=== PATIENT | female | born 1950 | race Caucasian/White ===

== ENCOUNTER 2022-05-08 20:07 | Emergency (ER) | payer MEDICARE ==
[~2022-05-08 20:07] MED LIST: Iopamidol 370 76% 100 ML VIAL ONE
[2022-05-08 21:05] LABS: #Basophils 0.1 thou/uL (0.0-0.2); #Lymphocytes 1.1 thou/uL (1.20-3.40); #Monocytes 0.6 thou/uL (0.11-0.59); #Neutrophils 11.4 thou/uL (1.40-6.50); %Basophils 0.8 % (0.0-1.0); %Eosinophils 0.2 % (0.0-10.0); %Lymphocytes 8.2 % (21.0-51.0); %Monocytes 4.5 % (0.0-10.0); %Neutrophils 86.3 % (42.0-75.0); Hemoglobin 14.7 g/dL (12.0-16.0); Mean Corpuscular HGB CONC 31.9 g/dL (32.0-36.0); Mean Corpuscular Hemoglobin 30.1 pg (27.0-31.0); Mean Corpuscular Volume 94.1 fL (78.0-98.0); Mean Platelet Volume 9.2 fL (7.4-10.4); Platelet Count 227 thou/uL (130-400); RBC Distribution Width 11.7 % (11.5-14.5); White Blood Cell (WBC) Count 13.3 thou/uL (4.8-10.8)
[2022-05-08] MEDS ORDERED: Pantoprazole 40 MG VIAL ONE (21:05)
[2022-05-08] MEDS ORDERED: Ondansetron PF 4 MG/2 ML Vial ONE ×2 (21:05→23:46)
[2022-05-08] MEDS ORDERED: Sodium Chloride 0.9% 1,000 ML ONE (21:05)
[2022-05-08] MEDS ORDERED: Ondansetron ODT 4 MG TAB ONE (21:05)
[2022-05-08 21:10] LABS: Prothrombin Time 13.2 sec (12.0-14.7)
[2022-05-08 21:19] LABS: ALT (SGPT) 15 U/L (8-55); AST (SGOT) 18 U/L (5-34); Albumin 4.4 g/dL (3.4-4.8); Alkaline Phosphatase 92 U/L (40-110); Anion Gap 19 mmol/L (10-20); BUN (Urea Nitrogen) 11 mg/dL (9.8-20.1); Bilirubin, Total 0.6 mg/dL (0.2-1.2); Calc. Creatinine Clearance 0 mL/min (70-130); Calcium 10.1 mg/dL (7.8-10.44); Carbon Dioxide 22 mmol/L (23-31); Chloride 104 mmol/L (98-107); Estimated GFR 65; Globulin 3.1 g/dL (2.4-3.5); Glucose 288 mg/dL (83-110); Potassium 4.2 mmol/L (3.5-5.1); Protein, Total 7.5 g/dL (5.8-8.1); Sodium 141 mmol/L (136-145)
[2022-05-08 23:23] LABS: Bilirubin Negative (Negative); Blood, Urine Negative (Negative); Clarity Slightly Cloudy (Clear); Glucose, Urine (Dipstick) >=1000 mg/dL (Negative); Ketone, Urine 15 mg/dL (Negative); Leukocyte Moderate (Negative); Nitrite Negative (Negative); Protein, Urine (Dipstick) Negative (Neg-Trace); Urobilinogen 0.2 mg/dL (Less than 2)
[2022-05-08 23:24] LABS: RBC/HPF 0-3 HPF (0-3); Squamous Epithelial 21-50 HPF (0-3); WBC/HPF 21-50 HPF (0-3)
[2022-05-09] MEDS ORDERED: Sodium Chloride 0.9% 50 ML ONE (01:48)
[2022-05-09] MEDS ORDERED: Promethazine HCl 25 MG/ML VIAL ONE (01:48)
== END 2022-05-09 02:14 | disposition short-term general hospital (02) ==
LOC: MADERS 20:07
DX: K92.0 Hematemesis (principal); Z79.84 Long term (current) use of oral hypoglycemic drugs
CPT/HCPCS: 74177; 80053; 81003; 81015; 85025; 85610; 85730; 86900; 86901; 87086; 96361; 96365; 96375; 96376; C9113; J2405; J2550; J7050; Q0162; Q9967

== ENCOUNTER 2022-09-30 13:02 | Inpatient (IN) | payer MEDICARE ==
[2022-09-30 15:16] VITALS: BMI 25.6
[2022-09-30] MEDS ORDERED: HumaLOG 300 UNITS/3 ML VIAL SC PRN ×2 (17:43)
[2022-09-30] MEDS ORDERED: Dextrose 50% Abboject 50 ML SYRINGE SLOW IVP PRN (17:43)
[2022-09-30] MEDS ORDERED: Lantiseptic Ointment 130 GM JAR TOP PRN (18:36)
[2022-09-30] MEDS: Ezetimibe 10 MG TAB PO SCH (21:24)
[2022-09-30] MEDS: Lantiseptic Ointment 130 GM JAR TOP SCH (21:24)
[2022-09-30] MEDS: Nystatin Cream 15 GM TUBE TOP SCH (21:25)
[2022-09-30] MEDS: Rosuvastatin 10 MG TAB PO SCH (21:25)
[2022-10-01 07:20] LABS: Hemoglobin 15.3 g/dL (12.0-16.0); Mean Corpuscular HGB CONC 33.6 g/dL (32.0-36.0); Mean Corpuscular Hemoglobin 30.4 pg (27.0-31.0); Mean Corpuscular Volume 90.6 fl (78.0-98.0); Mean Platelet Volume 8.1 fL (7.4-10.4); Platelet Count 236 10x3/uL (130-400); RBC Distribution Width 11.5 % (11.5-14.5); Red Blood Cell (RBC) Count 5.03 mill/uL (4.20-5.40); White Blood Cell (WBC) Count 6.2 10x3/uL (4.8-10.8)
[2022-10-01] MEDS ORDERED: glipiZIDE 5 MG TAB PO SCH (07:30)
[2022-10-01 07:45] LABS: Anion Gap 15 mmol/L (10-20); BUN (Urea Nitrogen) 13 mg/dL (9.8-20.1); Calc. Creatinine Clearance 58 mL/min (70-130); Calcium 9.7 mg/dL (7.8-10.44); Carbon Dioxide 24 mmol/L (23-31); Chloride 106 mmol/L (98-107); Estimated GFR 69; Glucose 136 mg/dL (83-110); Potassium 3.7 mmol/L (3.5-5.1); Sodium 141 mmol/L (136-145)
[2022-10-01] MEDS: Fenofibrate Nanocrystallized 145 MG TAB PO SCH (09:01)
[2022-10-01] MEDS: Pioglitazone HCl 15 MG TAB PO SCH (09:01)
[2022-10-01] MEDS: Nystatin Cream 15 GM TUBE TOP SCH ×2 (09:02→21:06)
[2022-10-01] MEDS: Aspirin 81 mg Enteric Coated Tablet PO SCH (09:02)
[2022-10-01] MEDS: metFORMIN 500 MG TAB PO SCH ×2 (09:02→17:10)
[2022-10-01] MEDS: Ergocalciferol 1.25 MG(50,000 UNITS) CAP PO SCH (09:02)
[2022-10-01] MEDS: Lantiseptic Ointment 130 GM JAR TOP SCH ×2 (09:03→21:04)
[2022-10-01] MEDS: Rosuvastatin 10 MG TAB PO SCH (21:02)
[2022-10-01] MEDS: Ezetimibe 10 MG TAB PO SCH (21:02)
[2022-10-02] MEDS: Nystatin Cream 15 GM TUBE TOP SCH ×2 (09:15→21:49)
[2022-10-02] MEDS: Lantiseptic Ointment 130 GM JAR TOP SCH ×3 (09:15→21:50)
[2022-10-02] MEDS: Aspirin 81 mg Enteric Coated Tablet PO SCH (09:45)
[2022-10-02] MEDS: metFORMIN 500 MG TAB PO SCH ×2 (09:45→17:41)
[2022-10-02] MEDS: Pioglitazone HCl 15 MG TAB PO SCH (09:45)
[2022-10-02] MEDS: Fenofibrate Nanocrystallized 145 MG TAB PO SCH (09:45)
[2022-10-02] MEDS ORDERED: Senokot S 8.6-50 MG TAB PO PRN (16:53)
[2022-10-02] MEDS: Ezetimibe 10 MG TAB PO SCH (21:42)
[2022-10-02] MEDS: Rosuvastatin 10 MG TAB PO SCH (21:47)
[2022-10-03] MEDS: Aspirin 81 mg Enteric Coated Tablet PO SCH (10:05)
[2022-10-03] MEDS: Fenofibrate Nanocrystallized 145 MG TAB PO SCH (10:05)
[2022-10-03] MEDS: metFORMIN 500 MG TAB PO SCH ×2 (10:05→17:08)
[2022-10-03] MEDS: Polyethylene Glycol 3350 17 GM Packet PO SCH (10:06)
[2022-10-03] MEDS: Nystatin Cream 15 GM TUBE TOP SCH ×4 (10:06→20:51)
[2022-10-03] MEDS: Lantiseptic Ointment 130 GM JAR TOP SCH ×2 (10:06→20:55)
[2022-10-03] MEDS: Rosuvastatin 10 MG TAB PO SCH (20:50)
[2022-10-03] MEDS: Ezetimibe 10 MG TAB PO SCH (20:50)
[2022-10-04] MEDS: metFORMIN 500 MG TAB PO SCH ×2 (09:31→17:04)
[2022-10-04] MEDS: Aspirin 81 mg Enteric Coated Tablet PO SCH (09:31)
[2022-10-04] MEDS: Fenofibrate Nanocrystallized 145 MG TAB PO SCH (09:31)
[2022-10-04] MEDS: Lantiseptic Ointment 130 GM JAR TOP SCH ×2 (09:32→20:35)
[2022-10-04] MEDS: Nystatin Cream 15 GM TUBE TOP SCH ×2 (09:32→20:36)
[2022-10-04] MEDS: Polyethylene Glycol 3350 17 GM Packet PO SCH (09:32)
[2022-10-04] MEDS: Rosuvastatin 10 MG TAB PO SCH (20:33)
[2022-10-04] MEDS: Ezetimibe 10 MG TAB PO SCH (20:33)
[2022-10-05] MEDS: metFORMIN 500 MG TAB PO SCH ×2 (08:43→17:16)
[2022-10-05] MEDS: Fenofibrate Nanocrystallized 145 MG TAB PO SCH (08:43)
[2022-10-05] MEDS: Polyethylene Glycol 3350 17 GM Packet PO SCH (08:44)
[2022-10-05] MEDS: Nystatin Cream 15 GM TUBE TOP SCH ×2 (08:44→21:56)
[2022-10-05] MEDS: Aspirin 81 mg Enteric Coated Tablet PO SCH (08:44)
[2022-10-05] MEDS: Lantiseptic Ointment 130 GM JAR TOP SCH ×2 (08:45→21:56)
[2022-10-05] MEDS: Rosuvastatin 10 MG TAB PO SCH (21:55)
[2022-10-05] MEDS: Ezetimibe 10 MG TAB PO SCH (21:55)
[2022-10-06] MEDS: Polyethylene Glycol 3350 17 GM Packet PO SCH (08:31)
[2022-10-06] MEDS: metFORMIN 500 MG TAB PO SCH ×2 (08:31→18:16)
[2022-10-06] MEDS: Lantiseptic Ointment 130 GM JAR TOP SCH ×2 (08:32→21:55)
[2022-10-06] MEDS: Fenofibrate Nanocrystallized 145 MG TAB PO SCH (08:32)
[2022-10-06] MEDS: Aspirin 81 mg Enteric Coated Tablet PO SCH (08:32)
[2022-10-06] MEDS: Nystatin Cream 15 GM TUBE TOP SCH ×2 (08:33→21:55)
[2022-10-06] MEDS: Ezetimibe 10 MG TAB PO SCH (21:54)
[2022-10-06] MEDS: Rosuvastatin 10 MG TAB PO SCH (21:54)
[2022-10-07] MEDS: metFORMIN 500 MG TAB PO SCH ×2 (09:25→18:07)
[2022-10-07] MEDS: Aspirin 81 mg Enteric Coated Tablet PO SCH (09:25)
[2022-10-07] MEDS: Polyethylene Glycol 3350 17 GM Packet PO SCH (09:25)
[2022-10-07] MEDS: Fenofibrate Nanocrystallized 145 MG TAB PO SCH (09:25)
[2022-10-07] MEDS: Lantiseptic Ointment 130 GM JAR TOP SCH ×2 (09:26→21:42)
[2022-10-07] MEDS: Nystatin Cream 15 GM TUBE TOP SCH ×2 (09:26→21:42)
[2022-10-07] MEDS: Ezetimibe 10 MG TAB PO SCH (21:42)
[2022-10-07] MEDS: Rosuvastatin 10 MG TAB PO SCH (21:42)
[2022-10-08] MEDS: metFORMIN 500 MG TAB PO SCH ×2 (09:06→17:15)
[2022-10-08] MEDS: Polyethylene Glycol 3350 17 GM Packet PO SCH (09:07)
[2022-10-08] MEDS: Lantiseptic Ointment 130 GM JAR TOP SCH ×2 (09:07→20:27)
[2022-10-08] MEDS: Ergocalciferol 1.25 MG(50,000 UNITS) CAP PO SCH (09:07)
[2022-10-08] MEDS: Fenofibrate Nanocrystallized 145 MG TAB PO SCH (09:07)
[2022-10-08] MEDS: Aspirin 81 mg Enteric Coated Tablet PO SCH (09:07)
[2022-10-08] MEDS: Nystatin Cream 15 GM TUBE TOP SCH ×2 (09:08→20:28)
[2022-10-08] MEDS: Ezetimibe 10 MG TAB PO SCH (20:26)
[2022-10-08] MEDS: Rosuvastatin 10 MG TAB PO SCH (20:26)
[2022-10-08] MEDS: Mirtazapine 15 MG TAB PO SCH (20:26)
[2022-10-09] MEDS: metFORMIN 500 MG TAB PO SCH ×2 (08:26→17:23)
[2022-10-09] MEDS: Polyethylene Glycol 3350 17 GM Packet PO SCH (08:26)
[2022-10-09] MEDS: Fenofibrate Nanocrystallized 145 MG TAB PO SCH (08:27)
[2022-10-09] MEDS: Aspirin 81 mg Enteric Coated Tablet PO SCH ×2 (08:27→08:34)
[2022-10-09] MEDS: Aspirin Chewable 81 MG TAB PO SCH (12:37)
[2022-10-09] MEDS: Nystatin Cream 15 GM TUBE TOP SCH ×2 (12:39→20:36)
[2022-10-09] MEDS: Lantiseptic Ointment 130 GM JAR TOP SCH ×3 (12:39→20:37)
[2022-10-09] MEDS: Ezetimibe 10 MG TAB PO SCH (20:35)
[2022-10-09] MEDS: Rosuvastatin 10 MG TAB PO SCH (20:35)
[2022-10-09] MEDS: Mirtazapine 15 MG TAB PO SCH (20:36)
[2022-10-09] MEDS: Famotidine 20 MG TAB PO SCH (20:36)
[2022-10-10 05:06] LABS: Platelet Count 242 10x3/uL (130-400)
[2022-10-10] MEDS: Lantiseptic Ointment 130 GM JAR TOP SCH ×2 (09:00→21:22)
[2022-10-10] MEDS: metFORMIN 500 MG TAB PO SCH ×2 (09:03→18:04)
[2022-10-10] MEDS: Fenofibrate Nanocrystallized 145 MG TAB PO SCH (10:01)
[2022-10-10] MEDS: Aspirin Chewable 81 MG TAB PO SCH (10:01)
[2022-10-10] MEDS: Famotidine 20 MG TAB PO SCH ×2 (10:01→21:18)
[2022-10-10] MEDS: Nystatin Cream 15 GM TUBE TOP SCH ×2 (10:11→21:22)
[2022-10-10] MEDS: Polyethylene Glycol 3350 17 GM Packet PO SCH (10:19)
[2022-10-10] MEDS: Ezetimibe 10 MG TAB PO SCH (21:18)
[2022-10-10] MEDS: Rosuvastatin 10 MG TAB PO SCH (21:19)
[2022-10-10] MEDS: Mirtazapine 15 MG TAB PO SCH (21:19)
[2022-10-11] MEDS: metFORMIN 500 MG TAB PO SCH ×2 (09:44→17:08)
[2022-10-11] MEDS: Famotidine 20 MG TAB PO SCH ×2 (09:45→20:24)
[2022-10-11] MEDS: Polyethylene Glycol 3350 17 GM Packet PO SCH (09:45)
[2022-10-11] MEDS: Nystatin Cream 15 GM TUBE TOP SCH ×2 (09:45→20:25)
[2022-10-11] MEDS: Lantiseptic Ointment 130 GM JAR TOP SCH ×2 (09:45→20:24)
[2022-10-11] MEDS: Fenofibrate Nanocrystallized 145 MG TAB PO SCH (09:45)
[2022-10-11] MEDS: Aspirin Chewable 81 MG TAB PO SCH (09:45)
[2022-10-11] MEDS: Ezetimibe 10 MG TAB PO SCH (20:23)
[2022-10-11] MEDS: Rosuvastatin 10 MG TAB PO SCH (20:24)
[2022-10-11] MEDS: Mirtazapine 15 MG TAB PO SCH (20:25)
[2022-10-12] MEDS: metFORMIN 500 MG TAB PO SCH ×2 (08:13→16:47)
[2022-10-12] MEDS: Aspirin Chewable 81 MG TAB PO SCH (08:13)
[2022-10-12] MEDS: Fenofibrate Nanocrystallized 145 MG TAB PO SCH (08:13)
[2022-10-12] MEDS: Famotidine 20 MG TAB PO SCH ×2 (08:14→22:07)
[2022-10-12] MEDS: Lantiseptic Ointment 130 GM JAR TOP SCH ×2 (08:15→22:06)
[2022-10-12] MEDS: Polyethylene Glycol 3350 17 GM Packet PO SCH (08:15)
[2022-10-12] MEDS: Nystatin Cream 15 GM TUBE TOP SCH ×2 (08:15→22:06)
[2022-10-12] MEDS: Mirtazapine 15 MG TAB PO SCH (22:07)
[2022-10-12] MEDS: Rosuvastatin 10 MG TAB PO SCH (22:07)
[2022-10-12] MEDS: Ezetimibe 10 MG TAB PO SCH (22:07)
[2022-10-13] MEDS: metFORMIN 500 MG TAB PO SCH ×2 (09:17→17:22)
[2022-10-13] MEDS: Famotidine 20 MG TAB PO SCH ×2 (09:17→21:27)
[2022-10-13] MEDS: Polyethylene Glycol 3350 17 GM Packet PO SCH (09:17)
[2022-10-13] MEDS: Fenofibrate Nanocrystallized 145 MG TAB PO SCH (09:17)
[2022-10-13] MEDS: Aspirin Chewable 81 MG TAB PO SCH (09:17)
[2022-10-13] MEDS: Nystatin Cream 15 GM TUBE TOP SCH ×2 (09:19→21:27)
[2022-10-13] MEDS: Lantiseptic Ointment 130 GM JAR TOP SCH ×2 (09:19→21:27)
[2022-10-13] MEDS: Mirtazapine 15 MG TAB PO SCH (21:28)
[2022-10-13] MEDS: Rosuvastatin 10 MG TAB PO SCH (21:28)
[2022-10-13] MEDS: Ezetimibe 10 MG TAB PO SCH (21:28)
[2022-10-14] MEDS: Fenofibrate Nanocrystallized 145 MG TAB PO SCH (08:15)
[2022-10-14] MEDS: metFORMIN 500 MG TAB PO SCH ×2 (08:15→16:55)
[2022-10-14] MEDS: Famotidine 20 MG TAB PO SCH (08:16)
[2022-10-14] MEDS: Aspirin Chewable 81 MG TAB PO SCH (08:16)
[2022-10-14] MEDS: Nystatin Cream 15 GM TUBE TOP SCH ×2 (08:17→21:08)
[2022-10-14] MEDS: Lantiseptic Ointment 130 GM JAR TOP SCH ×2 (08:17→21:08)
[2022-10-14] MEDS: Polyethylene Glycol 3350 17 GM Packet PO SCH (08:18)
[2022-10-14] MEDS ORDERED: Famotidine 20 MG TAB ONE ×2 (09:06→20:43)
[2022-10-14] MEDS ORDERED: Mirtazapine 15 MG TAB ONE ×2 (09:06→20:45)
[2022-10-14] MEDS ORDERED: Rosuvastatin 10 MG TAB ONE ×2 (09:06→20:42)
[2022-10-14] MEDS ORDERED: Ezetimibe 10 MG TAB ONE ×2 (09:06→20:45)
[2022-10-14] MEDS ORDERED: metFORMIN 500 MG TAB ONE (15:35)
[2022-10-14] MEDS ORDERED: Apixaban 5 MG TAB ONE (21:07)
[2022-10-15] MEDS: Aspirin Chewable 81 MG TAB PO SCH (08:32)
[2022-10-15] MEDS: Ergocalciferol 1.25 MG(50,000 UNITS) CAP PO SCH (08:33)
[2022-10-15] MEDS: Fenofibrate Nanocrystallized 145 MG TAB PO SCH (08:33)
[2022-10-15] MEDS: Nystatin Cream 15 GM TUBE TOP SCH ×2 (08:34→20:26)
[2022-10-15] MEDS: Lantiseptic Ointment 130 GM JAR TOP SCH ×2 (08:35→20:27)
[2022-10-15] MEDS: metFORMIN 500 MG TAB PO SCH ×2 (08:35→17:27)
[2022-10-15] MEDS: Famotidine 20 MG TAB PO SCH ×3 (08:36→20:25)
[2022-10-15] MEDS: Polyethylene Glycol 3350 17 GM Packet PO SCH (08:36)
[2022-10-15] MEDS: Ezetimibe 10 MG TAB PO SCH ×2 (10:22→20:23)
[2022-10-15] MEDS: Mirtazapine 15 MG TAB PO SCH ×2 (10:23→20:25)
[2022-10-15] MEDS: Rosuvastatin 10 MG TAB PO SCH ×2 (10:23→20:24)
[2022-10-16 07:14] VITALS: BP 124/79; TEMP 97.7
[2022-10-16] MEDS: Famotidine 20 MG TAB PO SCH (08:06)
[2022-10-16] MEDS: metFORMIN 500 MG TAB PO SCH (08:06)
[2022-10-16] MEDS: Fenofibrate Nanocrystallized 145 MG TAB PO SCH (08:06)
[2022-10-16] MEDS: Polyethylene Glycol 3350 17 GM Packet PO SCH (08:06)
[2022-10-16] MEDS: Aspirin Chewable 81 MG TAB PO SCH (08:06)
[2022-10-16] MEDS: Nystatin Cream 15 GM TUBE TOP SCH (08:07)
[2022-10-16] MEDS: Lantiseptic Ointment 130 GM JAR TOP SCH (08:08)
== END 2022-10-16 11:10 | disposition home or self-care (01) | DRG 57 ==
LOC: MADMS 14:50
PROVIDERS: ADMIT Family Medicine; ATTEND Emergency Medicine
DX: I69.398 Other sequelae of cerebral infarction (principal); I69.351 Hemiplegia and hemiparesis following cerebral infarction affecting right dominant side; E44.1 Mild protein-calorie malnutrition; E11.9 Type 2 diabetes mellitus without complications; I10 Essential (primary) hypertension; Z66 Do not resuscitate; E78.5 Hyperlipidemia, unspecified; R53.81 Other malaise; R63.0 Anorexia; I69.391 Dysphagia following cerebral infarction; I69.322 Dysarthria following cerebral infarction; Z88.2 Allergy status to sulfonamides; Z79.899 Other long term (current) drug therapy; Z79.82 Long term (current) use of aspirin; Z68.24 Body mass index [BMI] 24.0-24.9, adult; Z79.84 Long term (current) use of oral hypoglycemic drugs; Z20.822 Contact with and (suspected) exposure to COVID-19
CPT/HCPCS: 36415; 36416; 80048; 82565; 85014; 85018; 85027; 85049; 87811; J1650; J1815

== ENCOUNTER 2022-12-02 11:53 | Emergency (ER) | payer MEDICARE ==
[2022-12-02] MEDS ORDERED: Sodium Chloride 0.9% 1,000 ML ONE (12:15)
[2022-12-02 12:51] LABS: Hemoglobin 14.4 g/dL (12.0-16.0); Mean Corpuscular HGB CONC 33.6 g/dL (32.0-36.0); Mean Corpuscular Hemoglobin 31.3 pg (27.0-31.0); Mean Corpuscular Volume 93.2 fl (78.0-98.0); Mean Platelet Volume 9.6 fL (7.4-10.4); Platelet Count 181 10x3/uL (130-400); Red Blood Cell (RBC) Count 4.59 mill/uL (4.20-5.40); White Blood Cell (WBC) Count 6.1 10x3/uL (4.8-10.8)
[2022-12-02 12:53] LABS: ALT (SGPT) 11 U/L (8-55); AST (SGOT) 21 U/L (5-34); Albumin 4.1 g/dL (3.4-4.8); Alkaline Phosphatase 45 U/L (40-110); Anion Gap 17 mmol/L (10-20); BUN (Urea Nitrogen) 12 mg/dL (9.8-20.1); Bilirubin, Total 0.6 mg/dL (0.2-1.2); Calc. Creatinine Clearance 0 mL/min (70-130); Calcium 10.3 mg/dL (7.8-10.44); Carbon Dioxide 22 mmol/L (23-31); Chloride 103 mmol/L (98-107); Estimated GFR 56; Glucose 114 mg/dL (83-110); Potassium 3.7 mmol/L (3.5-5.1); Protein, Total 7.1 g/dL (5.8-8.1); Sodium 138 mmol/L (136-145)
[2022-12-02 12:58] LABS: Band 2 % (5-11); Eosinophils 1 % (0-10); Lymphocytes 37 % (21-51); MDiff Complete? YES; Manual Diff?? YES; Monocytes 5 % (0-10); Neutrophil 55 % (42-75); Platelet Morphology Comment Appears Adequate; RBC Morphology Normal
[2022-12-02 14:21] LABS: Bilirubin Small (Negative); Blood, Urine Trace (Negative); Glucose, Urine (Dipstick) Negative (Negative); Ketone, Urine Trace mg/dL (Negative); Leukocyte Small (Negative); Nitrite Negative (Negative); Protein, Urine (Dipstick) 100 mg/dL (Neg-Trace); Specific Gravity, Urine 1.025 (1.005-1.030)
[2022-12-02 14:23] LABS: Clarity Hazy (Clear)
[2022-12-02 14:31] LABS: Bacteria/HPF Rare-Few HPF (None Seen); Mucous/LPF 2+ LPF (<2+); RBC/HPF 0-3 HPF (0-3); Squamous Epithelial 0-3 HPF (0-3)
[2022-12-02] MEDS ORDERED: cefTRIAXone (ROCEPHIN) 2 GM VIAL ONE (14:48)
[2022-12-02] MEDS ORDERED: Sodium Chloride 0.9% 100 ML ONE (14:48)
== END 2022-12-02 15:40 | disposition home or self-care (01) ==
LOC: MADERS 11:53
DX: N39.0 Urinary tract infection, site not specified (principal)
CPT/HCPCS: 51701; 70450; 71045; 80053; 81003; 81015; 85025; 93005; 96365; J0696; J7050